=== PATIENT | male | born 1945 | race Two or more races ===

== ENCOUNTER → 2017-12-14 | Outpatient (CLI) | payer OTHER | END | disposition home or self-care (01) | LOC: PPH VACUNA 11:58 | DX: Z23 Encounter for immunization (principal) | CPT/HCPCS: 90472 ×2; 90674; 90715; 90732; G0008 ==

== ENCOUNTER 2018-09-24 10:12 | Emergency (ER) | payer OTHER ==
[~2018-09-24] VITALS: Ht 177.8 cm; Wt 99.8 kg
[2018-09-24] MEDS ORDERED: DIOVAN320 MG PO (10:39)
[2018-09-24] MEDS ORDERED: CIPRO100 MG PO (16:08)
[2018-09-24] MEDS ORDERED: INTESTINEX680 M1 PO (16:08)
[2018-09-24] MEDS ORDERED: ZANTAC150 MG PO (16:08)
[2018-09-24] MEDS ORDERED: FLAGYL500MG PO (16:08)
== END 2018-09-24 19:12 | disposition home or self-care (01) ==
LOC: ER 10:12
DX: A08.4 Viral intestinal infection, unspecified (principal)

== ENCOUNTER 2018-09-27 16:43 | Inpatient (IN) | payer OTHER ==
[~2018-09-27] VITALS: Ht 177.8 cm; Wt 97.5 kg
[~2018-09-27 16:43] MED LIST: CIPRO100 MG PO; DIOVAN320 MG PO; FLAGYL500MG PO; INTESTINEX680 M1 PO; ZANTAC150 MG PO
--- NOTE | 2018-09-27 17:28 | NUR ---
PACIENTE ALERTA,ACTIVO Y ORIENTADO.SE RECIBE EN AREA DE [facility] PAIN SE COL[place]A EN CAMA [address] CORIE ORDEN MEDICA,SE CONECTA A MONITOR CARDIACO CON SATUROMETRO.SE MIDEN S/V BP 70/42,P58,R26 Y SAT.100%.SE JASWINDER MUESTRAS DE RUTINA CORIE LIEN- COLO CON MEDIDAS ASEPTICAS.SE CANALIZA EN BRAZO DERECHO Y SE VERIFICA AREA DE CANALIZACION DE PARAMEDICOS,PATENTE,AMBAS AREAS LIBRES DE EDEMA Y/O ERITEMA. BARANDAS ELEVADAS POR RODRIGUEZ SEGURIDAD,ACOMPANADO DE ESPOSA,SE ORIENTAN DE CONTINUI DAD DE TRATAMIENTO,EVALUADO POR DR SALMON.SE CONTINUA MONITORERANDO POR CAMBIOS.
[2018-09-27] MEDS ORDERED: CARVEDILOL25 MG (17:33)
[2018-09-27] MEDS ORDERED: AVAPRO300 MG (17:33)
[2018-09-27] MEDS ORDERED: METROLOTION59 ML (17:34)
[2018-09-27] MEDS ORDERED: AMLODIPINE BESYL5 MG (17:34)
--- NOTE | 2018-09-28 07:17 | NUR ---
SE RECIBE DE TURNO ANTERIOR. PACIENTE MASCULINO. ALERTA Y ORIENTADO EN DESIRAE ESFERAS. CONECTADO A MONITOR CARDIACO Y OXIMETRIA CON ALARMAS AUDIBLES. BUEN PATRON RESPIRATORIO. PIEL TIBIA AL TACTO. CANALIZACION PATENTE, MEERA DE EDEMA Y/O ENROJECIMIENTO RECIBIENDO: 40MEQKCL/0.9%NSS @100 ML/HR. PACIENTE EN ESPERA DE CONSULTA CON DR GARCIA.
[2018-10-03] MEDS ORDERED: METRONIDAZOLE500 MG PO (11:23)
[2018-10-03] MEDS ORDERED: AVAPRO300 MG PO (11:23)
[2018-10-03] MEDS ORDERED: CIPRO100 MG PO (11:23)
[2018-10-03] MEDS ORDERED: CARVEDILOL25 MG PO (11:23)
[2018-10-03] MEDS ORDERED: ZANTAC150 MG PO (11:23)
[2018-10-03] MEDS ORDERED: INTESTINEX680 M1 PO (11:23)
== END 2018-10-03 11:49 | disposition home or self-care (01) | DRG 683 ==
LOC: ER 16:43 → SURH 09-28 11:35 → SEC-K 09-28 11:35 → MEDJ 09-28 12:05 → SEC-K 09-28 12:08 → SURH 09-28 13:52
PROVIDERS: ADMIT Internal Medicine Geriatric Medicine
DX: N17.8 Other acute kidney failure (principal); A09 Infectious gastroenteritis and colitis, unspecified; I95.89 Other hypotension; E86.0 Dehydration; A08.8 Other specified intestinal infections

== ENCOUNTER 2019-10-14 13:43 | Emergency (ER) | payer OTHER ==
[~2019-10-14] VITALS: Ht 177.8 cm; Wt 102.1 kg
[~2019-10-14 13:43] MED LIST changes: +AMLODIPINE BESYL5 MG; +AVAPRO300 MG; +AVAPRO300 MG PO; +CARVEDILOL25 MG; +CARVEDILOL25 MG PO; +METROLOTION59 ML; +METRONIDAZOLE500 MG PO
[2019-10-14] MEDS ORDERED: DICLOFENAC SODI75 MG PO (16:48)
== END 2019-10-14 19:14 | disposition home or self-care (01) ==
LOC: ER 13:43
DX: M25.561 Pain in right knee (principal)

== ENCOUNTER 2021-03-30 12:43 | Outpatient (CLI) | payer OTHER ==
[~2021-03-30 12:43] MED LIST changes: +DICLOFENAC SODI75 MG PO
[2021-03-31] MEDS ORDERED: MOBIC7.5 MG PO (13:28)
[2021-03-31] MEDS ORDERED: ZANAFLEX2 MG PO (13:29)
== END 2021-03-30 12:54 | disposition home or self-care (01) ==
LOC: RAD 12:43
PROVIDERS: ATTEND Orthopaedic Surgery Adult Reconstructive Orthopaedic Surgery
DX: M16.12 Unilateral primary osteoarthritis, left hip (principal); M17.11 Unilateral primary osteoarthritis, right knee; Z96.641 Presence of right artificial hip joint; Z96.652 Presence of left artificial knee joint

== ENCOUNTER 2021-07-14 08:00 | Outpatient (CLI) | payer OTHER ==
[~2021-07-14 08:00] MED LIST changes: +MOBIC7.5 MG PO; +ZANAFLEX2 MG PO
== END 2021-07-14 08:30 | disposition home or self-care (01) ==
LOC: PPH VACUNA 08:00
PROVIDERS: ATTEND Emergency Medicine Pediatric Emergency Medicine
DX: Z23 Encounter for immunization (principal)

== ENCOUNTER 2022-01-24 09:00 | Outpatient (CLI) | payer OTHER | END 2022-01-24 09:15 | disposition home or self-care (01) | LOC: PPH VACUNA 09:00 | PROVIDERS: ATTEND Emergency Medicine Pediatric Emergency Medicine | DX: Z23 Encounter for immunization (principal) ==

== ENCOUNTER 2022-10-05 11:08 | Outpatient (CLI) | payer OTHER | END 2022-10-05 11:17 | disposition home or self-care (01) | LOC: RAD 11:08 | PROVIDERS: ATTEND Physical Medicine & Rehabilitation | DX: M54.6 Pain in thoracic spine (principal); M54.50 Low back pain, unspecified ==